=== PATIENT | male | born 1985 | race Caucasian/White ===

== ENCOUNTER 2017-01-01 15:05 | Emergency (ER) | payer SELFPAY ==
[~2017-01-01 15:05] MED LIST: ACETAMINOPHEN A; AMOXICILLIN 50500 MG PO; BACTRIM DS TAB1 EACH PO; IBU800 M1 PO; NORCO 325 MG-51 TA1 PO
[2017-01-01 15:11] VITALS: BP 138/93
[2017-01-01] MEDS ORDERED: TYLENOL ARTHRI650 M2 PO (15:17)
[2017-01-01] MEDS ORDERED: ALEVE220 M1 PO (15:18)
== END 2017-01-01 17:30 | disposition left against medical advice (07) ==
LOC: ED 15:05
DX: L98.9 Disorder of the skin and subcutaneous tissue, unspecified (principal)